=== PATIENT | female | born 1930 | race Caucasian/White ===

== ENCOUNTER 2017-08-12 16:47 | Emergency (ER) | payer MEDICARE, MEDICAID ==
[~2017-08-12] VITALS: Ht 147.3 cm; Wt 41.3 kg
[~2017-08-12 16:47] MED LIST: ACET-868 PO; AMLO5TAB4 PO; BISA10SU8 RC; ERTA1VIA IV; LEVO50TA8 PO; MAGN400O6 PO; MEMA10TA PO; MEMA5TAB PO; METO25TA20 PO; MIRT15TA7 PO; PROC10TA29 PO; QUET25TA PO
[2017-08-12 17:31] LABS: BASOPHILS % (AUTO) 0.1 % (0.0-2.0); EOSINOPHILS # (AUTO) 0.3 /CMM (0.0-0.7); EOSINOPHILS % (AUTO) 1.3 % (0.0-6.0); HEMATOCRIT 29 % (33-45); HEMOGLOBIN 9.2 g/dL (11.5-14.8); LYMPHOCYTES # (AUTO) 0.5 /CMM (0.8-4.8); LYMPHOCYTES % (AUTO) 2.2 % (20.0-44.0); MEAN CORPUSCULAR HEMOGLOBIN 30 PG (26.0-33.0); MEAN CORPUSCULAR HGB CONC 31 g/dl (31.0-36.0); MEAN CORPUSCULAR VOLUME 96 fL (82-100); MONOCYTES # (AUTO) 0.2 /CMM (0.1-1.30); MONOCYTES % (AUTO) 1.2 % (2.0-12.0); NEUTROPHILS # (AUTO) 19.8 /CMM (1.8-8.9); NEUTROPHILS % (AUTO) 95.2 % (43.0-81.0); PLATELET COUNT (AUTO) 162 /CMM (150-450); RDW COEFFICIENT OF VARIATION 14.6 (11.5-15.0); RED BLOOD CELL COUNT(AUTO) 3.05 MIL/uL (4.0-5.2); WHITE BLOOD COUNT (AUTO) 20.8 K/uL (4.3-11.0)
[2017-08-12 17:33] VITALS: BP 103/66
[2017-08-12 17:41] LABS: CALCIUM, SERUM 8.6 mg/dL (8.5-10.1); CARBON DIOXIDE 24 mmol/L (21-32); CHLORIDE 98 mmol/L (98-107); GLUCOSE 112 mg/dL (74-106); POTASSIUM 3.7 mmol/L (3.5-5.1); SODIUM SERUM 144 mmol/L (136-145); UREA NITROGEN, BLOOD 47 mg/dL (7-18)
[2017-08-12 17:44] LABS: INR 1.35 (0.87-1.13); PROTHROMBIN TIME 14.2 SECS (9.5-12.7)
[2017-08-12 17:47] LABS: APPEARANCE,URINE Clear (CLEAR); BILIRUBIN,URINE Negative (NEGATIVE); BLOOD, URINE Negative Ery/uL (NEGATIVE); COLOR,URINE Yellow (YELLOW); KETONES,URINE Negative (NEGATIVE); LEUKOCYTE ESTERASE ,URINE Negative (NEGATIVE); NITRITE, URINE Negative (NEGATIVE); PROTEIN,URINE 30 mg/dl (NEGATIVE); UGLUCOSE Negative (NEGATIVE)
[2017-08-12 17:50] LABS: ALANINE AMINOTRANSFERASE 964 U/L (12-78); ALKALINE PHOSPHATASE 543 U/L (46-116); ASPARTATE AMINOTRANSFERASE 421 U/L (15-37); BILIRUBIN,DIRECT 1.8 mg/dL (0.0-0.2); BILIRUBIN,TOTAL 2.2 mg/dL (0.2-1.0)
[2017-08-12 17:57] LABS: BACTERIA,URINE None seen /HPF (None Seen); RBC,URINE 0-2 /HPF (0-2); SQUAMOUS EPITHELIAL CELL,UR Few /HPF (None Seen); WBC,URINE 0-2 /HPF (0-3)
[2017-08-12 18:02] LABS: TROPONIN I 1.535 ng/mL (0.00-0.056)
[2017-08-12] MEDS ORDERED: METO-302 PO (18:28)
[2017-08-12] MEDS ORDERED: DOCU-170 PO (18:28)
[2017-08-12] MEDS ORDERED: PANT40TA4 PO (18:28)
[2017-08-12] MEDS ORDERED: HYDR2TAB35 PO (18:28)
[2017-08-12] MEDS ORDERED: CYAN10006 IM (18:28)
[2017-08-12] MEDS ORDERED: FURO20TA4 PO (18:28)
[2017-08-12] MEDS ORDERED: NA P133E RC (18:28)
[2017-08-12] MEDS ORDERED: LEVO100T9 PO (18:28)
[2017-08-12] MEDS ORDERED: CALC-883 PO (18:28)
[2017-08-12] MEDS ORDERED: FERR-58 PO (18:28)
[2017-08-12] MEDS ORDERED: ONDA4TAB5 PO (18:28)
--- NOTE | 2017-08-12 18:45 | NUR ---
Alie ahmadi in ED - 08/12/[address] CHRISTIANSEN AT BEDSIDE WITH PT AGONAL BREATHING AND BRADYCARDIC
--- NOTE | 2017-08-12 18:52 | NUR ---
[facility] 87 [facility] C/O DESATURATION SPO2=70S IN RA, ALSO C/O MORE ALTERED THAN USUAL. PT PLACED ON MONITOR. MD AT BEDSIDE FOR EVAL.
--- NOTE | 2017-08-12 18:57 | NUR ---
DR CHRISTIANSEN AT BEDSIDE WITH PT AGONAL BREATHING AND BRADYCARDIC
--- NOTE | 2017-08-12 19:19 | NUR ---
RECEIVED REPORT FROM BARBARA SUH. DR. GUZMAN AT BEDSIDE FOR EVAL.
--- NOTE | 2017-08-12 19:20 | NUR ---
PT PRONOUNCED BY DR CHRISTIANSEN AT THIS TIME.
--- NOTE | 2017-08-12 19:37 | NUR ---
CALLED [facility], SPOKE TO JUSTINA, PER JUSTINA NO CASE, REFERRAL # [phone]
--- NOTE | 2017-08-12 19:40 | NUR ---
DR. NEWBERRY MADE AWARE OF PT TIME OF
--- NOTE | 2017-08-12 19:48 | NUR ---
CALLED [facility]. LEGAL NEXT OF KIN REGARDING PT , VM LEFT. WAITING FOR CALL BACK.
--- NOTE | 2017-08-12 20:00 | NUR ---
PT CLEANED AND PLACED IN BODY BAG; TRANSFERED TO [facility] [place].
== END 2017-08-12 20:15 ==
LOC: ER 16:51
DX: I46.9 Cardiac arrest, cause unspecified (principal); R79.1 Abnormal coagulation profile; R82.99 Other abnormal findings in urine; E03.9 Hypothyroidism, unspecified; F03.90 Unspecified dementia, unspecified severity, without behavioral disturbance, psychotic disturbance, mood disturbance, and anxiety; I12.9 Hypertensive chronic kidney disease with stage 1 through stage 4 chronic kidney disease, or unspecified chronic kidney disease; N18.9 Chronic kidney disease, unspecified; I71.4 Abdominal aortic aneurysm, without rupture; K21.9 Gastro-esophageal reflux disease without esophagitis; R65.20 Severe sepsis without septic shock; F29 Unspecified psychosis not due to a substance or known physiological condition; I25.2 Old myocardial infarction; J96.00 Acute respiratory failure, unspecified whether with hypoxia or hypercapnia; Z88.0 Allergy status to penicillin; Z88.2 Allergy status to sulfonamides; Z88.6 Allergy status to analgesic agent
CPT/HCPCS: 36415; 71010-TC; 80048-TC; 80076-TC; 81000-TC; 83605-TC; 84484-TC; 85025-TC; 85730-TC; 87040-TC; 87081-TC; 87086-TC; 87186-TC; A4606; J0696; J1956; J3370; J7030; J7060; Z7610